=== PATIENT | male | born 1985 | race Caucasian/White ===

== ENCOUNTER 2018-06-14 08:52 | Emergency (ER) | payer OTHER ==
[2018-06-14 09:15] VITALS: BP 152/77
--- NOTE | 2018-06-14 09:45 | ED.PDOC ---
History of Present Illness - General Chief Complaint: General Time Seen by Provider: 06/14/18 09:21 Source: patient Exam Limitations: no limitations - History of Present Illness Initial Comments: Patient presents for a medication refill. He is a and is [facility]. He has PTSD and depression and took his last Prozac this morning. He says he needs enough to get him to his next appointment. He also takes atorvastatin. He has not had any suicidal or homicidal ideation. No diarrhea or mylgias. No other complaints. Timing/Duration: changing over time Severity: mild Improving Factors: nothing Worsening Factors: nothing Associated Symptoms: denies symptoms Allergies/Adverse Reactions: Allergies NO KNOWN ALLERGY Allergy (Verified 06/14/18 09:09) Home Medications: Ambulatory Orders Atorvastatin Calcium [Lipitor] 20 mg PO DAILY #30 tab 06/14/18 Fluoxetine HCl 20 mg PO QAM #30 cap 06/14/18 Review of Systems - Review of Systems Constitutional: States: no symptoms reported EENTM: States: no symptoms reported Respiratory: States: no symptoms reported Cardiology: States: no symptoms reported Gastrointestinal/Abdominal: States: no symptoms reported Genitourinary: States: no symptoms reported Musculoskeletal: States: no symptoms reported Skin: States: no symptoms reported Neurological: States: see HPI Endocrine: States: no symptoms reported Hematologic/Lymphatic: States: no symptoms reported Past Medical History (General) - Patient Medical History Hx Seizures: No Hx Stroke: No Hx Dementia: No Hx Asthma: No Hx of COPD: No Hx Cardiac Disorders: No Hx Congestive Heart Failure: No Hx Pacemaker: No Hx Hypertension: No Hx Thyroid Disease: No Hx Diabetes: No Hx Gastroesophageal Reflux: No Hx Renal Disease: No Hx Cancer: No Hx of HIV: No Hx Hepatitis C: No Hx MRSA: No Surgical History: no surgical history - Vaccination History Hx Tetanus, Diphtheria Vaccination: No Hx Influenza Vaccination: No Hx Pneumococcal Vaccination: No Immunizations Up to Date: No - Social History Hx Tobacco Use: No Hx Chewing Tobacco Use: No Hx Alcohol Use: Yes Hx Substance Use: No Hx Substance Use Treatment: No Hx Depression: No Feels Threatened In Home Enviroment: No Feels Threatened In a Relationship: No Hx Physical Abuse: No Hx Emotional Abuse: No Hx Suspected Abuse: No - Female History Patient is a Female of Child Bearing Age (10 -59 yrs old): No Patient : No Family Medical History - Family History Mother Family History: Unknown Physical Exam - Physical Exam General Appearance: Alert Eye Exam: bilateral normal Ears, Nose, Throat: normal ENT inspection Neck: non-tender, full range of motion, supple Respiratory: chest non-tender, lungs clear, normal breath sounds Cardiovascular/Chest: normal peripheral pulses, regular rate, rhythm, no edema Gastrointestinal/Abdominal: normal bowel sounds, non tender, soft 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 Copy, Patient Portal Self Enrollment Diet: other - as per your regular doctor Activity: increase activity as tolerated Prescriptions: Atorvastatin Calcium [Lipitor] 20 mg PO DAILY #30 tab Fluoxetine HCl 20 mg PO QAM #30 cap Home Medications: Ambulatory Orders Atorvastatin Calcium [Lipitor] 20 mg PO DAILY #30 tab 06/14/18 Fluoxetine HCl 20 mg PO QAM #30 cap 06/14/18
[2018-06-14 10:04] VITALS: TEMP 98.6; O2SAT 98
== END 2018-06-14 10:04 | disposition home or self-care (01) ==
LOC: ER 08:52
DX: Z76.0 Encounter for issue of repeat prescription (principal); F43.10 Post-traumatic stress disorder, unspecified; F32.9 Major depressive disorder, single episode, unspecified; Z79.899 Other long term (current) drug therapy

== ENCOUNTER 2018-07-12 09:38 | Emergency (ER) | payer OTHER ==
--- NOTE | 2018-07-12 09:57 | ED.PDOC ---
History of Present Illness - General Time Seen by Provider: 07/12/18 09:54 Source: patient, RN notes reviewed, Vital Signs reviewed Additional Information: 33 YEAR OLD WHITE MALE EX- PRESENTS WITH KNOWN HISTOR OF PTSD RAN OUT OF HIS MEDS UNABLE TO FILL [facility]RU [facility] HE HAS HISTORY OF ANXIETY AND DEPRESSION NO SUICIDAL THOUGHTS AT THIS TIME - History of Present Illness Timing/Duration: getting worse Severity: moderate Associated Symptoms: anxiety Allergies/Adverse Reactions: Allergies NO KNOWN ALLERGY Allergy (Verified 06/14/18 09:09) Home Medications: Ambulatory Orders Atorvastatin Calcium [Lipitor] 20 mg PO DAILY #30 tab 06/14/18 Fluoxetine HCl 20 mg PO QAM #30 cap 06/14/18 Fluoxetine HCl [PROzac] 20 mg PO DAILY 90 Days cap NS 07/12/18 Review of Systems - Review of Systems Constitutional: States: no symptoms reported EENTM: States: no symptoms reported Respiratory: States: no symptoms reported Cardiology: States: no symptoms reported Gastrointestinal/Abdominal: States: no symptoms reported Genitourinary: States: no symptoms reported Skin: States: no symptoms reported Neurological: States: no symptoms reported Endocrine: States: no symptoms reported Hematologic/Lymphatic: States: no symptoms reported Past Medical History (General) - Patient Medical History Hx Seizures: No Hx Stroke: No Hx Dementia: No Hx Asthma: No Hx of COPD: No Hx Cardiac Disorders: No Hx Congestive Heart Failure: No Hx Pacemaker: No Hx Hypertension: No Hx Thyroid Disease: No Hx Diabetes: No Hx Gastroesophageal Reflux: No Hx Renal Disease: No Hx Cancer: No Hx of HIV: No Hx Hepatitis C: No Hx MRSA: No - Vaccination History Hx Tetanus, Diphtheria Vaccination: No Hx Influenza Vaccination: No Hx Pneumococcal Vaccination: No - Social History Hx Tobacco Use: No Hx Chewing Tobacco Use: No Hx Alcohol Use: Yes Hx Substance Use: No Hx Substance Use Treatment: No Hx Depression: No Hx Physical Abuse: No Hx Emotional Abuse: No Hx Suspected Abuse: No - Female History Patient : No Family Medical History - Family History Mother Family History: Unknown Physical Exam - Physical Exam General Appearance: Agitated, Anxious Eyes, Ears, Nose, Throat Exam: PERRL/EOMI, normal ENT inspection, TMs normal, pharynx normal Neck: non-tender, full range of motion, supple Respiratory: chest non-tender, lungs clear, normal breath sounds Cardiovascular/Chest: normal peripheral pulses, regular rate, rhythm, no edema Gastrointestinal/Abdominal: normal bowel sounds, non tender, soft, no organomegaly Neurological: alert, anxious Appearance: appropriate appearance, appropriate insight, neat, no memory impairment Behavior/Eye Contact/Speech: cooperative, good eye contact, normal speech Thoughts/Hallucinations: no apparent hallucination Skin Exam: normal color, warm/dry Departure - Departure Clinical Impression: PTSD (post-traumatic stress disorder) Time of Disposition: 09:58 Disposition: Discharge to Home or Self Care Condition: Good Home Medications: Ambulatory Orders Atorvastatin Calcium [Lipitor] 20 mg PO DAILY #30 tab 06/14/18 Fluoxetine HCl 20 mg PO QAM #30 cap 06/14/18 Fluoxetine HCl [PROzac] 20 mg PO DAILY 90 Days cap NS 07/12/18
[2018-07-12 13:08] VITALS: BP 137/90; TEMP 98.7; O2SAT 98
== END 2018-07-12 10:02 | disposition home or self-care (01) ==
LOC: ER 09:38
DX: Z76.0 Encounter for issue of repeat prescription (principal); F43.10 Post-traumatic stress disorder, unspecified; F41.9 Anxiety disorder, unspecified; F32.9 Major depressive disorder, single episode, unspecified; Z79.899 Other long term (current) drug therapy

== ENCOUNTER 2019-04-28 19:22 | Emergency (ER) | payer OTHER ==
[2019-04-28] MEDS ORDERED: LORazepam 0.5 MG TAB PO ONE (19:30)
[2019-04-28] MEDS ORDERED: KETOROLAC TROMETHAMINE INJ 30 MG/ML VIAL IM ONE (19:31)
[2019-04-28] MEDS ORDERED: GABAPENTIN 100 MG CAP PO ONE (19:32)
--- NOTE | 2019-04-28 19:35 | ED.PDOC ---
History of Present Illness - General Chief Complaint: General Stated Complaint: numbness to face, anxious Time Seen by Provider: 04/28/19 19:31 - History of Present Illness Initial Comments: Patient is a 34 year old M w/ pmh of anxiety and PTSD who presents to the ED c/o perioral numbness and jaw pain. Reports that earlier this week had dental work performed and since then he has been having right sided jaw pain and numbness. His symptoms worsened today and so he went to his PCP who prescribed prednisone, gabapentin, tylenol 3 and ibuprofen. On the way home from the pharmacist he developed worsening numbness and so came to the ED. He denies any unilateral weakness, slurred speech, fevers, chills, or change in hearing. Allergies/Adverse Reactions: Allergies NO KNOWN ALLERGY Allergy (Verified 06/14/18 09:09) Home Medications: Ambulatory Orders Atorvastatin Calcium [Lipitor] 20 mg PO DAILY #30 tab 06/14/18 Fluoxetine HCl 20 mg PO QAM #30 cap 06/14/18 Fluoxetine HCl [PROzac] 20 mg PO DAILY 90 Days cap NS 07/12/18 Review of Systems - Review of Systems Constitutional: Denies: chills, fever EENTM: States: other - jaw pain. Denies: blurred vision Respiratory: States: no symptoms reported Cardiology: States: no symptoms reported Gastrointestinal/Abdominal: States: no symptoms reported Genitourinary: States: no symptoms reported Musculoskeletal: States: no symptoms reported Skin: States: no symptoms reported Neurological: States: anxiety, depressed Endocrine: States: no symptoms reported Hematologic/Lymphatic: States: no symptoms reported All other Systems: Reviewed and Negative Past Medical History (General) - Patient Medical History Hx Seizures: No Hx Stroke: No Hx Dementia: No Hx Asthma: No Hx of COPD: No Hx Cardiac Disorders: No Hx Congestive Heart Failure: No Hx Pacemaker: No Hx Hypertension: No Hx Thyroid Disease: No Hx Diabetes: No Hx Gastroesophageal Reflux: No Hx Renal Disease: No Hx Cancer: No Hx of HIV: No Hx Hepatitis C: No Hx MRSA: No - Vaccination History Hx Tetanus, Diphtheria Vaccination: No Hx Influenza Vaccination: No Hx Pneumococcal Vaccination: No - Social History Hx Tobacco Use: No Hx Chewing Tobacco Use: No Hx Alcohol Use: Yes Hx Substance Use: No Hx Substance Use Treatment: No Hx Depression: No Hx Physical Abuse: No Hx Emotional Abuse: No Hx Suspected Abuse: No - Female History Patient : No Family Medical History - Family History Mother Family History: Unknown Physical Exam - Physical Exam General Appearance: Anxious, Restless Eye Exam: bilateral normal Ears, Nose, Throat: hearing grossly normal, normal ENT inspection, other - normal sensation of face, no oropharyngeal swelling. TMs impacted with cerumen, bilateral Neck: non-tender, supple Respiratory: chest non-tender, lungs clear Cardiovascular/Chest: normal peripheral pulses, no edema Gastrointestinal/Abdominal: non tender, soft Rectal Exam: deferred Extremity: normal range of motion, non-tender Neurologic: alert, oriented x 3 Skin Exam: normal color, warm/dry Progress - Progress Progress: 04/28/19 19:37 Patient w/ h/o anxiety and depression and prior panic attacks presents with perioral numbness. Appears very anxious. Suspect panic attack. Will treat with anxiolysis, reassess. 04/28/19 20:18 Patient reports feeling better, still has some numbness, but feels well enough to go home. Will f/u with his PCP. Departure - Departure Clinical Impression: Perioral numbness, Anxiety Disposition: Discharge to Home or Self Care Condition: Good Departure Forms: ED Discharge - Pt. Copy, Patient Portal Self Enrollment Instructions: Paresthesias (DC) Home Medications: Ambulatory Orders Atorvastatin Calcium [Lipitor] 20 mg PO DAILY #30 tab 06/14/18 Fluoxetine HCl 20 mg PO QAM #30 cap 06/14/18 Fluoxetine HCl [PROzac] 20 mg PO DAILY 90 Days cap NS 07/12/18 Additional Instructions: Please follow up with your PCP, or return to the ER if you have any worsening symptoms.
[2019-04-28 19:41] VITALS: TEMP 97.4
[2019-04-28 20:04] VITALS: BP 172/120; O2SAT 96
== END 2019-04-28 20:22 | disposition home or self-care (01) ==
LOC: ER 19:22
DX: R20.0 Anesthesia of skin (principal); F41.9 Anxiety disorder, unspecified; F32.9 Major depressive disorder, single episode, unspecified; Z79.899 Other long term (current) drug therapy

== ENCOUNTER 2019-04-30 03:24 | Inpatient (IN) | payer OTHER ==
--- NOTE | 2019-04-30 04:22 | ED.PDOC ---
History of Present Illness - General Chief Complaint: ENT Problem Stated Complaint: difficulty swallowing, right jaw discomfort Time Seen by Provider: 04/30/19 04:16 Source: patient, RN notes reviewed, Vital Signs reviewed, family - , [facility] - ED visit from 04/28/2019 Exam Limitations: no limitations Additional Information: Pt is a 34 y/o WM who presents with c/o worsening swelling of the right side of his jaw extending down into the neck. Pt denies f/c/n/v. +toothache. Throbbing in nature. Worse with heat or cold. No alleviating factors. - History of Present Illness Timing/Duration: gradual, yesterday Severity: moderate EENT Location: mouth, throat Prearrival Treatment: no prearrival treatment Presenting Symptoms: Pt c/o worsening right jaw pain and swelling. Improving Factors: nothing Worsening Factors: cold therapy Associated Symptoms: facial pain/swelling, poor fluid intake, poor solids intake, sore throat, tooth pain Allergies/Adverse Reactions: Allergies NO KNOWN ALLERGY Allergy (Verified 04/30/19 03:38) Home Medications: Ambulatory Orders Fluoxetine HCl [PROzac] 40 mg PO DAILY 04/30/19 Gabapentin [Neurontin] 300 mg PO TID 04/30/19 Review of Systems - Review of Systems Constitutional: States: no symptoms reported. Denies: chills, fever EENTM: States: ear pain, throat pain, throat swelling, mouth pain, mouth swelling. Denies: ear discharge, nose congestion Respiratory: States: no symptoms reported. Denies: cough, short of breath, stridor Cardiology: States: no symptoms reported. Denies: chest pain, palpitations, syncope Gastrointestinal/Abdominal: States: no symptoms reported. Denies: nausea, vomiting Genitourinary: States: no symptoms reported Musculoskeletal: States: no symptoms reported Skin: States: no symptoms reported Neurological: States: no symptoms reported, numbness, paresthesia - of jaw. Denies: headache Endocrine: States: no symptoms reported Hematologic/Lymphatic: States: no symptoms reported All other Systems: Reviewed and Negative Past Medical History (General) - Patient Medical History Hx Seizures: No Hx Stroke: No Hx Dementia: No Hx Asthma: No Hx of COPD: No Hx Cardiac Disorders: No Hx Congestive Heart Failure: No Hx Pacemaker: No Hx Hypertension: No Hx Thyroid Disease: No Hx Diabetes: No Hx Gastroesophageal Reflux: No Hx Renal Disease: No Hx Cancer: No Hx of HIV: No Hx Hepatitis C: No Hx MRSA: No Surgical History: no surgical history - Vaccination History Hx Tetanus, Diphtheria Vaccination: No Hx Influenza Vaccination: No Hx Pneumococcal Vaccination: No - Social History Hx Tobacco Use: No Hx Chewing Tobacco Use: No Hx Alcohol Use: Yes Hx Substance Use: No Hx Substance Use Treatment: No Hx Depression: No Hx Physical Abuse: No Hx Emotional Abuse: No Hx Suspected Abuse: No - Female History Patient : No Family Medical History - Family History Mother Family History: Unknown Hx Family Hypertension: Yes Hx Cardiac Disease: Yes Hx Family;Other: alzeihmers Physical Exam - Physical Exam General Appearance: Alert, Anxious, Obvious distress, Restless, Well Developed, Well Groomed, Well Hydrated, Well Nourished Eye Exam: bilateral normal Ear Exam: bilateral ear: auricle normal Nasal Exam: normal inspection Throat Exam: pharynx normal, dental tenderness, mandibular swelling Neck: supple, trachea midline, lymphadenopathy (R), other - swelling of right submandibular area and of neck. 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 Pt medicated with Fentanyl and Zofran. 04/30/19 06:57 Pt accepted for admission by Juana Stone. Pt's blood pressure improving with pain control. D/w pt and his plan for admission. They voice understanding and agreement. Alexandr Amin M.D. #[id number] - Results/Orders Results/Orders: 04/30/19 03:41 STREP A SCREEN CULTURE Stat 04/30/19 04:17 Soft Tissue Neck w/Contrast [CT] Stat 04/30/19 04:18 Hold Metformin x 48Hrs [id number] 04/30/19 06:19 Clindamycin IV 900Mg [Cleocin IV 900mg] 900 mg Premix Bag 1 bag IVPB ONCE Laboratory Results - last 24 hr 04/30/19 04/30/19 04/30/19 03:41 04:17 04:17 WBC 7.8 RBC 5.55 Hgb 17.4 Hct 51.0 MCV 91.8 MCH 31.3 H MCHC 34.1 RDW 13.7 Plt Count 234 MPV 7.7 Absolute Neuts (auto) 5.70 Absolute Lymphs (auto) 1.10 Absolute Monos (auto) 0.90 H Absolute Eos (auto) 0.10 Absolute Basos (auto) 0.00 Neutrophils % 72.8 Lymphocytes % 14.2 L Monocytes % 11.8 H Eosinophils % 0.8 L Basophils % 0.4 Sodium 136 Potassium 4.1 Chloride 98 L Carbon Dioxide 25 Anion Gap 17.1 BUN 9 Creatinine 0.84 BUN/Creatinine Ratio 10.7 Random Glucose 98 Serum Osmolality 270.6 L Calcium 9.7 Group A Strep Rapid Negative - EKG/XRAY/CT CT: Facial/neck stranding c/w cellulitis. Departure - Departure Clinical Impression: Facial cellulitis, Cellulitis, neck, PTSD (post-traumatic stress disorder), Anxiety Disposition: Admit Patient Condition: Fair Home Medications: Ambulatory Orders Fluoxetine HCl [PROzac] 40 mg PO DAILY 04/30/19 Gabapentin [Neurontin] 300 mg PO TID 04/30/19 Decision To Admit - Decistion To Admit Decision to Admit Reason: Admit from ER Decision to Admit Date: 04/30/19 Decision to Admit Time: 06:55
[2019-04-30] MEDS ORDERED: fentaNYL CITRATE INJ 50 MCG/ML AMP IV ONE ×3 (05:03→18:41)
[2019-04-30] MEDS ORDERED: ONDANSETRON INJ 4 MG/2 ML VIAL IV ONE (05:03)
[2019-04-30] MEDS ORDERED: CLINDAMYCIN IV 900MG 900 MG in PREMIX BAG 1 BAG IVPB ONE (06:19)
[2019-04-30] MEDS ORDERED: CLINDAMYCIN IV 900MG 50 ML IVPB ONE (06:25)
[2019-04-30] MEDS ORDERED: HYDROmorphone HCL INJ 2 MG/ML VIAL IV ONE ×2 (06:39→08:08)
--- NOTE | 2019-04-30 06:46 | CT ---
EXAM: CT Neck With Intravenous Contrast CLINICAL HISTORY: The patient is 34 years old and is Male; right jaw/neck swelling. TECHNIQUE: Axial computed tomography images of the neck with intravenous contrast. Sagittal and coronal reformatted images were created and reviewed. This CT exam was performed using one or more of the following dose reduction techniques: automated exposure control, adjustment of the mA and/or kV according to patient size, and/or use of iterative reconstruction technique. COMPARISON: No relevant prior studies available. FINDINGS: OROPHARYNX: Unremarkable. No significant tonsillar enlargement. No peritonsillar abscess. HYPOPHARYNX: Unremarkable. LARYNX: Unremarkable. Normal epiglottis. TRACHEA: Unremarkable. RETROPHARYNGEAL SPACE: Unremarkable. SUBMANDIBULAR/PAROTID GLANDS: The submandibular and parotid glands are symmetric in size and enhancement. THYROID: Unremarkable. BONES/JOINTS: No acute fracture. SOFT TISSUES: There is subcutaneous inflammatory stranding in the right submandibular region, extending along the submandibular gland and into the anterior aspect of the right upper neck. Few mildly prominent subcentimeter lymph nodes at this level. Findings suggest cellulitis. No focal fluid collection visualized to suggest abscess. SINUSES: Mucous retention cyst in the right maxillary sinus. No air-fluid levels. VASCULATURE: No acute findings. LYMPH NODES: See above. LUNG APICES: Unremarkable as visualized. IMPRESSION: Subcutaneous inflammation in the right submandibular region, suggesting focal cellulitis. No evidence of abscess. Electronically signed by: Yumiko Min MD 04/30/2019 6:44 AM CDT
--- NOTE | 2019-04-30 07:50 | HP ---
SUPERVISING PHYSICIAN: Hu Long M.D. CHIEF COMPLAINT: Right jaw pain with numbness. HISTORY OF PRESENT ILLNESS: This is a 34 year-old male patient who presented to the Emergency Room due to his right jaw swelling as well as uncontrollable pain with chills and numbness. In October of 2018, he went to the [facility] dentist in [place], Dr. Donnelly, and had a tooth on his right lower jaw that had to have some work done on it. He said it had to be ground down and since that time he has had some occasional pain in that right jaw. About a week ago the pain in his jaw became more intense. It actually radiated up into his ear and down into his right neck as well as into his mouth. He also had some swelling. He saw his dentist, Dr. Donnelly, and at that time he felt that there was no infection and he gave him some prednisone, some 800 mg Ibuprofen and some Tylenol #3. He then went to see Tho Paige who is his nurse practitioner on Wednesday with numbness, with increased pain and he gave him some Gabapentin at that time. He picked up his medications at [facility] and the pain became so intense as well as the numbness increased that he came to the Emergency Room on Wednesday night. At that time, after a workup they felt that he was having a panic attack as he has a history of posttraumatic stress disorder and anxiety. He was encouraged to continue his medications as previously prescribed. The day prior to his admission to the hospital on the second event he felt that the Gabapentin had helped his pain and actually went to bed at his usual time on Wednesday. He woke up at 2:00 in the morning with such intense pain that he asked his to take him to the Emergency Room. In the Emergency Room, his initial vital signs showed a temperature of 97.5 with a heart rate of 75, blood pressure 168/121, respiratory rate 18, O2 sat 98%. His blood pressure continued to go up to 184/117. His pain was throbbing in nature and he was unable to control it with his medications at home. He initially got some Dilaudid and his blood pressure went up to 192/121. He then required an additional dose of Dilaudid without any relief and his blood pressure remained elevated. Shortly thereafter they changed his pain medications to Fentanyl and he was given a dose of Fentanyl. Again, his blood pressure was 165/117. He required a fourth dose of narcotics, which is Fentanyl, again. He also received some Toradol and shortly thereafter his blood pressure went down to 142/109. Lab was done and his CBC was basically unremarkable. His metabolic panel was unremarkable. He did have a low serum osmolality at 270.6. Group A rapid Strep was negative. Soft tissue neck CT was done that suggested subcutaneous inflammation of the right submandibular region suggesting focal cellulitis with no evidence of abscess. He received clindamycin and I was called for hospital admission. PAST MEDICAL HISTORY: 1. Posttraumatic stress disorder. 2. General anxiety disorder. PAST SURGICAL HISTORY: 1. Eye surgery as a child. OUTPATIENT MEDICATIONS: 1. Prozac. ALLERGIES: NO KNOWN DRUG ALLERGIES. SOCIAL HISTORY: He lives outside of [place]. He is a disabled Vet. He does not smoke cigarettes but he does dip smokeless tobacco. He drinks 6 to 8 beers daily and denies any illicit drug use. REVIEW OF SYSTEMS: GENERAL: Positive for chills. Negative for fever or weight changes. HEENT: Positive for right jaw pain and difficulty swallowing. He has been unable to eat for several days due to his throat being extremely sore. Negative for vision changes or sinus symptoms. RESPIRATORY: Negative for shortness of breath, coughing or wheezing. CARDIAC: Negative for chest pain, palpitations or tachycardia. GASTROINTESTINAL: Negative for nausea, vomiting, diarrhea or constipation. GENITOURINARY: Negative for hematuria, dysuria or polyuria. MUSCULOSKELETAL: Negative for myalgias or arthralgias. SKIN: Negative for lesions or rashes. NEUROLOGIC: Positive for anxiety and posttraumatic stress disorder. PHYSICAL EXAMINATION: VITAL SIGNS: Temperature 98.4, heart rate 75, blood pressure 141/90, respiratory rate 18, O2 sat 97% on room air. GENERAL: This is a 34 year-old male patient who is sitting in his chair in his hospital room. He is anxious and in moderate distress. HEENT: Normocephalic and atraumatic. Pupils are equal and reactive. His right jaw is significantly edematous with some warmth in it. The pain goes up into the right ear area as well as his entire right portion of his mouth. It does radiate down the right portion of his neck into his shoulder. It is warm to the touch. The patient has difficulty opening his mouth. NECK: Somewhat limited in motion due to the swelling in that neck. RESPIRATORY: Essentially clear to auscultation bilaterally. CHEST: There is equal rise and fall of the chest with inspiration and expiration. CARDIOVASCULAR: Regular rate and rhythm. GASTROINTESTINAL: Abdomen is soft, nondistended, non-tender. Bowel sounds are positive. EXTREMITIES: No clubbing, cyanosis or edema. NEUROLOGIC: He is awake, alert and oriented times three. Cranial nerves II-XII are grossly intact. SKIN: Warm and dry except his right jaw is very warm and tender to touch. LABORATORY: Labs and films are as per the History of Present Illness. ASSESSMENT: 1. Right submandibular cellulitis failed outpatient treatment requiring multiple doses of pain medication with medication change from Dilaudid to Fentanyl. He is now requiring Fentanyl, Toradol and Dennis. 2. Elevated blood pressure without diagnosis of hypertension. 3. Posttraumatic stress disorder. 4. Coronary artery disease. PLAN: The patient has been admitted to the hospital and placed in observation. He will get fluids today and we will start Unasyn. Will give him 4 doses of Toradol as well as give him Dennis and for breakthrough pain he can have Fentanyl. His home medications have been restarted. He will have a PPI for ulcer prophylaxis as well as Lovenox for DVT prophylaxis. May need to contact his dentist in [place], Dr. Donnelly. I have ordered routine lab for in the morning. Will continue to monitor closely and follow as needed. #[id number] MTDD
[2019-04-30] MEDS ORDERED: KETOROLAC TROMETHAMINE INJ 30 MG/ML VIAL IV ONE (08:08)
[2019-04-30] MEDS ORDERED: ONDANSETRON INJ 4 MG/2 ML VIAL IV PRN (08:24)
[2019-04-30] MEDS ORDERED: ACETAMINOPHEN 325 MG TAB PO PRN (08:24)
[2019-04-30] MEDS ORDERED: SODIUM CHLORIDE 0.9% (FLUSH) 10 ML SYG IV PRN (08:24)
[2019-04-30] MEDS ORDERED: SODIUM CHLORIDE 0.9% 1000ML 1,000 ML IVS ONE (08:26)
[2019-04-30] MEDS ORDERED: fentaNYL CITRATE INJ 50 MCG/ML AMP IV PRN (08:30)
[2019-04-30] MEDS ORDERED: MAGNESIUM HYDROXIDE 30 ML UD PO ONE ×2 (09:41→13:00)
[2019-04-30] MEDS: PANTOPRAZOLE SODIUM IV 40 MG VIAL IV SCH (09:52)
[2019-04-30] MEDS: IV SET AND CAP CHANGE INJ INJ SCH (09:52)
[2019-04-30] MEDS: GABAPENTIN 300 MG CAP PO SCH ×3 (09:52→20:17)
[2019-04-30] MEDS: FLUoxetine HCL 20 MG CAP PO SCH (09:53)
[2019-04-30] MEDS: SODIUM CHLORIDE 0.9% (FLUSH) 10 ML SYG IV SCH ×2 (09:53→20:17)
[2019-04-30] MEDS ORDERED: AMPICILLIN & SULBACTAM SODIUM 3 GM VIAL ONE ×2 (10:34→14:26)
[2019-04-30] MEDS ORDERED: SODIUM CHL 0.9% 100ML MINI-BAG 100 ML IVPB ONE ×2 (10:34→14:26)
[2019-04-30] MEDS: AMPICILLIN & SULBACTAM SODIUM 3 GM in SODIUM CHL 0.9% 100ML MINI-BAG 100 ML IVPB SCH ×2 (10:40→14:32)
[2019-04-30] MEDS ORDERED: HYDROcodone 7.5MG/APAP 325MG 1 EA TAB PO ONE (12:16)
[2019-04-30] MEDS ORDERED: HYDROcodone 7.5MG/APAP 325MG 1 EA TAB PO PRN (15:47)
[2019-04-30] MEDS: HYDROcodone 10MG/APAP 325MG 1 EA TAB PO PRN ×2 (15:53→22:26)
[2019-04-30] MEDS ORDERED: AMPICILLIN & SULBACTAM SODIUM 3 GM in SODIUM CHLORIDE 0.9% 100ML 100 ML IVPB SCH (16:00)
[2019-04-30] MEDS: KETOROLAC TROMETHAMINE INJ 30 MG/ML VIAL IV SCH (18:46)
[2019-04-30] MEDS ORDERED: AMPICILLIN & SULBACTAM SODIUM 1.5 GM VIAL ONE ×2 (19:28→19:29)
[2019-04-30] MEDS ORDERED: SODIUM CHLORIDE 0.9% 100ML 100 ML IVPB ONE ×2 (19:28→19:29)
[2019-04-30] MEDS: ENOXAPARIN SODIUM 40 MG/0.4 ML SYG SUBCU SCH (20:17)
[2019-04-30] MEDS: AMPICILLIN & SULBACTAM SODIUM 3 GM in SODIUM CHLORIDE 0.9% 100ML 100 ML IVPB SCH (20:18)
[2019-05-01] MEDS: KETOROLAC TROMETHAMINE INJ 30 MG/ML VIAL IV SCH ×3 (00:16→11:54)
[2019-05-01] MEDS: AMPICILLIN & SULBACTAM SODIUM 3 GM in SODIUM CHLORIDE 0.9% 100ML 100 ML IVPB SCH ×4 (02:01→20:27)
[2019-05-01] MEDS: HYDROcodone 10MG/APAP 325MG 1 EA TAB PO PRN ×4 (03:08→22:11)
[2019-05-01] MEDS: FLUoxetine HCL 20 MG CAP PO SCH ×2 (06:12→07:23)
[2019-05-01] MEDS: PANTOPRAZOLE SODIUM IV 40 MG VIAL IV SCH (06:12)
[2019-05-01] MEDS ORDERED: AMPICILLIN & SULBACTAM SODIUM 1.5 GM VIAL ONE ×4 (07:39→23:42)
[2019-05-01] MEDS ORDERED: SODIUM CHLORIDE 0.9% 100ML 100 ML IVPB ONE ×4 (07:39→23:42)
[2019-05-01] MEDS: GABAPENTIN 300 MG CAP PO SCH ×3 (08:39→20:28)
[2019-05-01] MEDS: SODIUM CHLORIDE 0.9% (FLUSH) 10 ML SYG IV SCH ×2 (08:39→20:28)
[2019-05-01] MEDS: ENOXAPARIN SODIUM 40 MG/0.4 ML SYG SUBCU SCH (20:28)
[2019-05-01] MEDS ORDERED: HYDROmorphone HCL INJ 2 MG/ML VIAL IV ONE (20:51)
--- NOTE | 2019-05-01 20:51 | PN ---
DATE: 05/01/19 SUPERVISING PHYSICIAN: Kevin Saravia M.D. SUBJECTIVE: The patient notes he is still having a significant amount of pain on the right jaw but it is being controlled with [facility]. He still has some limited motion of the jaw itself. He has had no complaints of any airway compromise, stridor, chest pains or difficulty swallowing. OBJECTIVE: GENERAL: The patient appears to be in no acute distress. He is a little anxious, otherwise he is alert. HEENT: There is noted swelling involving the right submandibular area with no obvious erythema. It is tender to palpation. He is unable to open his mouth to any significant amount to fully examine. The submandibular and anterior lymph nodes are palpable. CHEST: Lungs are clear to auscultation. HEART: Regular rate and rhythm. ABDOMEN: Soft, non-tender. Positive bowel sounds. EXTREMITIES: Without any edema. NEUROLOGIC: He is alert and oriented times three. RADIOLOGY: No additional radiographic studies today. Did have Dr. Ya review previous CT to see if we needed to do any further scans. He felt at this point the patient was not showing any significant findings on initial studies and we could reevaluate in a couple of days to see if he would benefit from an additional scan. ASSESSMENT: 1. Right submandibular cellulitis having failed outpatient treatment with antibiotic therapy requiring initiation of both parenteral pain management and antibiotic therapy. 2. Mild hypertension. 3. Posttraumatic stress disorder. 4. Coronary artery disease. PLAN: Will continue with Unasyn. He has several doses of Toradol remaining and will continue with [facility] for pain control. Will hopefully be able to discharge in the next 2 days, if not sooner. If he does not show significant improvement, certainly will consider re-imaging. Once discharged he will need to followup with his dentist who is Dr. Donnelly in [place]. Until then will continue to monitor and treat as needed. [facility][id number] [facility]
[2019-05-02] MEDS ORDERED: HYDROmorphone HCL INJ 2 MG/ML VIAL IV ONE
[2019-05-02] MEDS ORDERED: ACETAMINOPHEN IV 1000MG 1,000 MG in PREMIX BOTTLE 1 BOTTLE IVPB ONE
[2019-05-02] MEDS ORDERED: KETOROLAC TROMETHAMINE INJ 30 MG/ML VIAL IV ONE
[2019-05-02] MEDS ORDERED: ACETAMINOPHEN IV 1000MG 100 ML ONE (00:20)
[2019-05-02] MEDS ORDERED: POLYETHYLENE GLYCOL 3350 17 GM PCKT PO PRN (02:02)
[2019-05-02] MEDS: AMPICILLIN & SULBACTAM SODIUM 3 GM in SODIUM CHLORIDE 0.9% 100ML 100 ML IVPB SCH ×4 (02:30→20:24)
[2019-05-02] MEDS: HYDROcodone 10MG/APAP 325MG 1 EA TAB PO PRN ×4 (02:33→10:39)
[2019-05-02] MEDS: FLUoxetine HCL 20 MG CAP PO SCH ×2 (06:01→07:45)
[2019-05-02] MEDS: PANTOPRAZOLE SODIUM TAB 40 MG PO SCH (06:07)
[2019-05-02] MEDS ORDERED: AMPICILLIN & SULBACTAM SODIUM 1.5 GM VIAL ONE ×4 (07:52→20:19)
[2019-05-02] MEDS ORDERED: SODIUM CHLORIDE 0.9% 100ML 100 ML IVPB ONE ×4 (07:53→20:20)
[2019-05-02] MEDS: SODIUM CHLORIDE 0.9% (FLUSH) 10 ML SYG IV SCH ×2 (08:13→20:32)
[2019-05-02] MEDS: GABAPENTIN 300 MG CAP PO SCH ×3 (08:13→20:33)
[2019-05-02] MEDS ORDERED: MAGNESIUM HYDROXIDE 30 ML UD PO ONE (12:01)
[2019-05-02] MEDS: KETOROLAC TROMETHAMINE INJ 30 MG/ML VIAL IV SCH ×2 (12:41→17:36)
[2019-05-02] MEDS: ENOXAPARIN SODIUM 40 MG/0.4 ML SYG SUBCU SCH (20:32)
--- NOTE | 2019-05-02 21:18 | PN ---
DATE: 05/02/19 SUPERVISING PHYSICIAN: Kevin Saravia M.D. SUBJECTIVE: The patient is still having a good amount of pain in the right jaw. He required some Toradol, Dilaudid and Tylenol last night. He feels like the swelling has gone down some but he still has a little difficulty with range of motion of the jaw related to the swelling on the right side. He has had no fevers. No nausea, vomiting or chest pains. OBJECTIVE: VITAL SIGNS: He remains afebrile with temperature 97.9, pulse 65, blood pressure 135/89, respirations 16, satting 97% on room air. Weight is 107.5 kg. GENERAL: The patient is still a little anxious. Says he had good pain control overnight but it is starting to wear off at time of assessment, although he appears to be in no acute distress. He is alert. HEENT: Continues to be some mild edema overlying the lateral right mandibular area with some swelling down into the submandibular region and the right side of the neck, although showing improvement from yesterday's assessment. There is no erythema but it still continues to be tender to palpation. No areas of consolidation, fluctuation or any signs of abscess formation. CHEST: Lungs are clear to auscultation. HEART: Regular rate and rhythm. ABDOMEN: Soft, non-tender. Positive bowel sounds. EXTREMITIES: Without any edema. NEUROLOGIC: He is alert and oriented times three. LABORATORY: No additional laboratory studies or radiographic studies today. ASSESSMENT: 1. Right submandibular cellulitis having failed outpatient treatment with antibiotic therapy requiring initiation of both parenteral pain management and antibiotic therapy showing some improvement since initiation of antibiotic therapy. 2. Mild hypertension showing to be stable. 3. Posttraumatic stress disorder. 4. Coronary artery disease. PLAN: Will continue antibiotic therapy at this point with Unasyn as he has shown good improvement. Will go ahead and start him on some Toradol 50 mg every 6 hours as this seems to be helping with his pain control. He is on DVT prophylaxis per protocol and I do anticipate later tomorrow. Until then will continue to monitor and treat as needed. #[id number] [facility]
[2019-05-03] MEDS: KETOROLAC TROMETHAMINE INJ 30 MG/ML VIAL IV SCH ×2 (00:13→06:25)
[2019-05-03] MEDS: HYDROcodone 10MG/APAP 325MG 1 EA TAB PO PRN ×3 (00:17→08:11)
[2019-05-03] MEDS: AMPICILLIN & SULBACTAM SODIUM 3 GM in SODIUM CHLORIDE 0.9% 100ML 100 ML IVPB SCH ×2 (02:12→08:08)
[2019-05-03] MEDS: PANTOPRAZOLE SODIUM TAB 40 MG PO SCH (06:26)
[2019-05-03] MEDS: FLUoxetine HCL 20 MG CAP PO SCH ×2 (06:26→08:07)
[2019-05-03] MEDS ORDERED: SODIUM CHLORIDE 0.9% 100ML 100 ML IVPB ONE (07:51)
[2019-05-03] MEDS ORDERED: AMPICILLIN & SULBACTAM SODIUM 1.5 GM VIAL ONE (07:51)
[2019-05-03] MEDS: IV SET AND CAP CHANGE INJ INJ SCH (08:08)
[2019-05-03] MEDS: GABAPENTIN 300 MG CAP PO SCH (08:10)
[2019-05-03] MEDS: SODIUM CHLORIDE 0.9% (FLUSH) 10 ML SYG IV SCH (08:11)
[2019-05-03] MEDS ORDERED: MAGNESIUM HYDROXIDE 30 ML UD ONE (08:52)
[2019-05-03] MEDS ORDERED: MAGNESIUM HYDROXIDE 30 ML UD PO PRN (08:52)
[2019-05-03] MEDS ORDERED: KETOROLAC TROMETHAMINE INJ 30 MG/ML VIAL IM ONE (11:10)
[2019-05-03 12:27] VITALS: BP 131/76; TEMP 97; O2SAT 95
[2019-05-04] MEDS ORDERED: FLUoxetine HCL 20 MG CAP PO SCH (06:00)
--- NOTE | 2019-05-17 13:52 | DS ---
SUPERVISING PHYSICIAN: Kevin Saravia MD ADMISSION DIAGNOSIS: 1. Right submandibular cellulitis failed outpatient treatment requiring multiple doses of pain medication with medication change from Dilaudid to fentanyl. He is now requiring fentanyl, Toradol and Rembrandt. 2. Elevated blood pressure without diagnosis of hypertension. 3. Posttraumatic stress disorder. 4. Coronary artery disease. DISCHARGE DIAGNOSIS: 1. Right submandibular cellulitis having failed outpatient treatment plan, but showing showing good response to parenteral antibiotics and transition to oral medications. 2. Mild hypertension showing to be stable. 3. Posttraumatic stress disorder. 4. Coronary artery disease. REASON FOR HOSPITALIZATION: This is a 34 year-old male patient who presented to the Emergency Room due to his right jaw swelling as well as uncontrollable pain with chills and numbness. In October of 2018, he went to the [facility] dentist in [place], Dr. Donnelly, and had a tooth on his right lower jaw that had to have some work done on it. He said it had to be ground down and since that time he has had some occasional pain in that right jaw. About a week ago the pain in his jaw became more intense. It actually radiated up into his ear and down into his right neck as well as into his mouth. He also had some swelling. He saw his dentist, Dr. Donnelly, and at that time he felt that there was no infection and he gave him some prednisone, some 800 mg Ibuprofen and some Tylenol #3. He then went to see Tho Paige who is his nurse practitioner on Wednesday with numbness, with increased pain and he gave him some Gabapentin at that time. He picked up his medications at [facility] and the pain became so intense as well as the numbness increased that he came to the Emergency Room on Wednesday night. At that time, after a workup they felt that he was having a panic attack as he has a history of posttraumatic stress disorder and anxiety. He was encouraged to continue his medications as previously prescribed. The day prior to his admission to the hospital on the second event he felt that the Gabapentin had helped his pain and actually went to bed at his usual time on Wednesday. He woke up at 2:00 in the morning with such intense pain that he asked his to take him to the Emergency Room. In the Emergency Room, his initial vital signs showed a temperature of 97.5 with a heart rate of 75, blood pressure 168/121, respiratory rate 18, O2 sat 98%. His blood pressure continued to go up to 184/117. His pain was throbbing in nature and he was unable to control it with his medications at home. He initially got some Dilaudid and his blood pressure went up to 192/121. He then required an additional dose of Dilaudid without any relief and his blood pressure remained elevated. Shortly thereafter they changed his pain medications to Fentanyl and he was given a dose of Fentanyl. Again, his blood pressure was 165/117. He required a fourth dose of narcotics, which is Fentanyl, again. He also received some Toradol and shortly thereafter his blood pressure went down to 142/109. Lab was done and his CBC was basically unremarkable. His metabolic panel was unremarkable. He did have a low serum osmolality at 270.6. Group A rapid Strep was negative. Soft tissue neck CT was done that suggested subcutaneous inflammation of the right submandibular region suggesting focal cellulitis with no evidence of abscess. He received clindamycin and I was called for hospital admission. LABORATORY: CBC on admission was within normal limits with white count 7,800. At discharge, white count was 6,600. No left shift. Chemistries on admission and on discharge were within normal limits. Group A Strep was negative. MICROBIOLOGY: Group A Strep culture showed no beta hemolytic strep isolated. RADIOLOGY: CT of soft tissue of neck on admission per radiologic interpretation showed subcutaneous inflammation of right submandibular region suggesting focal cellulitis and no evidence of abscess. Please see that report for full details. He had an EKG on admission and per radiologic interpretation showed normal sinus rhythm with no concerning T-wave or ST changes to indicate acute coronary syndrome or injury pattern. HOSPITAL COURSE: Mr. Ramon was admitted for parenteral antibiotic which included clindamycin initially and then changed Zosyn for the duration of the hospitalization. On the day of discharge, he was transitioned to Augmentin. He was given pain management and had good control. He had no complications. He was afebrile on admission and at discharge. He was stable and it was felt he had clinically improved enough that he could continue with outpatient management and followup with a dental specialist. DISCHARGE PHYSICAL EXAMINATION: VITAL SIGNS: Temperature 97. Pulse 81. Blood pressure 131/76. Respirations 16. Saturation 95% on room air. GENERAL: The patient is still a little anxious. Says he had good pain control overnight but it is starting to wear off at time of assessment, although he appears to be in no acute distress. He is alert. HEENT: Some mild edema continued on the lateral right mandibular area, but improved since initiation of antibiotics with no obvious areas of consolidation, fluctuation or any signs of abscess formation. CHEST: Lungs are clear to auscultation. HEART: Regular rate and rhythm. ABDOMEN: Soft, nontender. Positive bowel sounds. EXTREMITIES: Without any edema. NEUROLOGIC: He is alert and oriented times three. PLAN: Mr. Ramon was discharged to followup with his dental specialist. He was instructed to see Tho Paige, his primary care provider, as well. He was told to resume his medications on discharge and return to the hospital should he have any worsening or concerning symptoms. Diet at discharge was normal diet as tolerated. Activity to increase as tolerated. PRESCRIPTIONS PROVIDED ON DISCHARGE: 1. Xanax 0.25 mg q.4h., #15, no refills. 2. Augmentin 875 mg twice daily, #20, no refills. All other medications on discharge were continued as is prior to hospitalization including Prozac. CONDITION ON DISCHARGE: Improved and stable. DISPOSITION: The patient is discharged to care of family members. #[id number] [facility]
== END 2019-05-03 12:10 | disposition home or self-care (01) | DRG 603 ==
LOC: ER 03:24 → MS 07:48 → OBSVTOIN 07:48
PROVIDERS: ADMIT Nurse Practitioner Acute Care; ATTEND Nurse Practitioner Family
DX: L03.221 Cellulitis of neck (principal); R03.0 Elevated blood-pressure reading, without diagnosis of hypertension; F43.10 Post-traumatic stress disorder, unspecified; F41.1 Generalized anxiety disorder; F17.220 Nicotine dependence, chewing tobacco, uncomplicated; I25.10 Atherosclerotic heart disease of native coronary artery without angina pectoris; Z79.899 Other long term (current) drug therapy

== ENCOUNTER 2019-05-04 03:05 | Emergency (ER) | payer OTHER ==
[2019-05-04 03:19] VITALS: TEMP 96.6
[2019-05-04] MEDS ORDERED: HYDROmorphone HCL INJ 2 MG/ML VIAL IV ONE (03:30)
[2019-05-04] MEDS ORDERED: ONDANSETRON INJ 4 MG/2 ML VIAL IV ONE (03:30)
[2019-05-04 04:04] VITALS: BP 168/117; O2SAT 99
[2019-05-04] MEDS: AMPICILLIN & SULBACTAM SODIUM 1.5 GM in SODIUM CHL 0.9% 50ML MIN-BAG+ 50 ML IVPB ONE ×2 (04:53→05:02)
[2019-05-04] MEDS ORDERED: SODIUM CHL 0.9% 50ML MIN-BAG+ 50 ML IVPB ONE (04:54)
[2019-05-04] MEDS ORDERED: AMPICILLIN & SULBACTAM SODIUM 1.5 GM VIAL ONE (04:54)
--- NOTE | 2019-05-04 06:05 | ED.PDOC ---
History of Present Illness - General Chief Complaint: Dental/Mouth Stated Complaint: jaw/mouth pain Time Seen by Provider: 05/04/19 03:21 Source: patient, RN notes reviewed, Vital Signs reviewed, family Exam Limitations: no limitations - History of Present Illness Initial Comments: Pt presents with c/o right jaw pain and difficulty opening his mouth. Pt admitted by me a few days ago secondary to facial/neck cellulitis. Pt denies f/c. No n/v/d. Timing/Duration: gradual, last week Severity: moderate EENT Location: throat, dental Prearrival Treatment: prescription meds Improving Factors: nothing Worsening Factors: eating, movement Associated Symptoms: facial pain/swelling, tooth pain Allergies/Adverse Reactions: Allergies NO KNOWN ALLERGY Allergy (Verified 04/30/19 09:25) Home Medications: Ambulatory Orders Fluoxetine HCl [Prozac] 40 mg PO 0600 04/30/19 ALPRAZolam [Xanax] 0.25 mg PO Q4H #15 tab 05/03/19 Amoxicillin & Pot Clavulanate [Augmentin Tab] 875 mg PO BID #20 tab 05/03/19 Review of Systems - Review of Systems Constitutional: States: see HPI. Denies: chills, fever EENTM: States: see HPI, throat pain, throat swelling, mouth pain, mouth swelling Respiratory: States: no symptoms reported Cardiology: States: no symptoms reported Gastrointestinal/Abdominal: States: no symptoms reported Genitourinary: States: no symptoms reported Musculoskeletal: States: no symptoms reported Skin: States: no symptoms reported Neurological: States: no symptoms reported Endocrine: States: no symptoms reported Hematologic/Lymphatic: States: no symptoms reported Past Medical History (General) - Patient Medical History Hx Seizures: No Hx Stroke: No Hx Dementia: No Hx Asthma: No Hx of COPD: No Hx Cardiac Disorders: No Hx Congestive Heart Failure: No Hx Pacemaker: No Hx Hypertension: No Hx Thyroid Disease: No Hx Diabetes: No Hx Gastroesophageal Reflux: No Hx Renal Disease: No Hx Cancer: No Hx of HIV: No Hx Hepatitis C: No Hx MRSA: No Surgical History: other - Vaccination History Hx Tetanus, Diphtheria Vaccination: No Hx Influenza Vaccination: No Hx Pneumococcal Vaccination: No - Social History Hx Tobacco Use: Yes Hx Chewing Tobacco Use: No Hx Alcohol Use: Yes - has not had any in last 2 weeks Hx Substance Use: No Hx Substance Use Treatment: No Hx Depression: No Hx Physical Abuse: No Hx Emotional Abuse: No Hx Suspected Abuse: No - Female History Patient : No Family Medical History - Family History Mother Family History: Unknown Hx Family Hypertension: Yes Hx Cardiac Disease: Yes Hx Family;Other: alzheimers Physical Exam - Physical Exam General Appearance: Agitated, Alert, Anxious, Obvious distress, Well Developed, Well Groomed, Well Hydrated, Well Nourished Eye Exam: bilateral normal Ear Exam: bilateral ear: auricle normal Nasal Exam: normal inspection Throat Exam: dental tenderness, mandibular swelling, trismus Neck: supple, lymphadenopathy (R), tender lateral, other - swelling of right inferior mandibular area Cardiovascular/Respiratory: regular rate, rhythm, no M/R/G Abdominal Exam: non-tender, no organomegaly Neurologic: aircraft servicer II-XII nml as tested, no motor/sensory deficits, alert, normal mood/affect, oriented x 3 Skin Exam: normal color, warm/dry Progress - Progress Progress: 05/04/19 06:08 Pt left AMA at 0445. - Results/Orders Results/Orders: 05/04/19 03:22 IV:Start .ONCE Laboratory Results - last 24 hr 05/04/19 05/04/19 03:40 03:40 WBC 5.3 RBC 5.23 Hgb 16.4 Hct 47.6 MCV 91.0 MCH 31.4 H MCHC 34.5 RDW 13.4 Plt Count 282 MPV 8.1 Absolute Neuts (auto) 3.10 Absolute Lymphs (auto) 1.40 Absolute Monos (auto) 0.50 Absolute Eos (auto) 0.20 Absolute Basos (auto) 0.00 Neutrophils % 58.8 Lymphocytes % 26.2 Monocytes % 9.9 H Eosinophils % 4.5 Basophils % 0.6 Sodium 139 Potassium 4.0 Chloride 100 L Carbon Dioxide 28 Anion Gap 15.0 BUN 10 Creatinine 0.93 BUN/Creatinine Ratio 10.8 Random Glucose 115 H Serum Osmolality 277.5 Calcium 9.8 Departure - Departure Clinical Impression: Cellulitis, neck, Dental abscess Time of Disposition: 05:00 Disposition: Left Against Medical Advice Condition: Good Departure Forms: ED Discharge - Pt. Copy, Patient Portal Self Enrollment Instructions: DI for Mouth Pain, DI for Dental Pain Home Medications: Ambulatory Orders Fluoxetine HCl [Prozac] 40 mg PO 0600 04/30/19 ALPRAZolam [Xanax] 0.25 mg PO Q4H #15 tab 05/03/19 Amoxicillin & Pot Clavulanate [Augmentin Tab] 875 mg PO BID #20 tab 05/03/19
== END 2019-05-04 05:03 | disposition left against medical advice (07) ==
LOC: ER 03:05
DX: L03.221 Cellulitis of neck (principal); K04.7 Periapical abscess without sinus; Z53.29 Procedure and treatment not carried out because of patient's decision for other reasons; Z87.891 Personal history of nicotine dependence
CPT/HCPCS: 80048; 85025; J0295; J1170; J2405; J7050